=== PATIENT | female | born 1990 | race Caucasian/White ===

== ENCOUNTER 2017-05-28 17:32 | Emergency (ER) | payer OTHER, SELFPAY | END 2017-05-28 18:40 | disposition home or self-care (01) | LOC: ERS 17:32 | DX: J11.1 Influenza due to unidentified influenza virus with other respiratory manifestations (principal); F17.210 Nicotine dependence, cigarettes, uncomplicated | CPT/HCPCS: 99283 ==

== ENCOUNTER 2018-01-24 17:56 | Emergency (ER) | payer SELFPAY | END 2018-01-24 19:07 | disposition left against medical advice (07) | LOC: ERS 17:56 | DX: Z53.21 Procedure and treatment not carried out due to patient leaving prior to being seen by health care provider (principal) ==

== ENCOUNTER 2018-03-11 20:27 | Emergency (ER) | payer SELFPAY ==
[2018-03-11] MEDS ORDERED: HYDROcodone/Acetaminophen 7.5/325 mg Tablet ONE (22:18)
== END 2018-03-11 22:52 | disposition home or self-care (01) ==
LOC: ERS 20:27
DX: N75.0 Cyst of Bartholin's gland (principal); F17.210 Nicotine dependence, cigarettes, uncomplicated
CPT/HCPCS: 99283

== ENCOUNTER 2018-09-05 03:21 | Emergency (ER) | payer SELFPAY ==
[2018-09-05] MEDS ORDERED: Ketorolac Tromethamine 60 MG/2 ML VIAL ONE (04:03)
--- NOTE | 2018-09-05 08:58 | RAD ---
RIGHT WRIST 3 VIEWS: HISTORY: Right wrist injury. FINDINGS: Scaphoid waist and ulnar styloid are intact. No acute fracture, dislocation, or aggressive osseous e rosions. IMPRESSION: No acute osseous abnormalities are demonstrated. POS: [facility]
--- NOTE | 2018-09-05 09:24 | RAD ---
RIGHT HAND 3 VIEWS: HISTORY: Hand pain status post trauma. FINDINGS: There is slight deformity to the 5th metacarpal which appears to be related to an old boxer's type fr acture. I do not see any signs of acute fracture or dislocation. IMPRESSION: No acute injury. POS: [facility]
== END 2018-09-05 04:19 | disposition home or self-care (01) ==
LOC: ERS 03:21
DX: S60.211A Contusion of right wrist, initial encounter (principal); F17.210 Nicotine dependence, cigarettes, uncomplicated; W54.8XXA Other contact with dog, initial encounter
CPT/HCPCS: 96372; J1885

== ENCOUNTER 2020-07-04 23:25 | Emergency (ER) | payer OTHER ==
[2020-07-05] MEDS ORDERED: predniSONE 20 MG TAB ONE (00:58)
== END 2020-07-05 01:03 | disposition home or self-care (01) ==
LOC: ERS 23:25
DX: J02.9 Acute pharyngitis, unspecified (principal); Z79.899 Other long term (current) drug therapy; F17.210 Nicotine dependence, cigarettes, uncomplicated
CPT/HCPCS: 87081; 87430; 99283; J7512

== ENCOUNTER 2022-11-14 23:12 | Emergency (ER) | payer OTHER ==
[2022-11-15] MEDS ORDERED: HYDROcodone/Acetaminophen 5/325 mg Tablet ONE (00:04)
== END 2022-11-15 00:27 | disposition home or self-care (01) ==
LOC: ERS 23:12
DX: M25.561 Pain in right knee (principal); W01.0XXA Fall on same level from slipping, tripping and stumbling without subsequent striking against object, initial encounter